=== PATIENT | female | born 1985 | race Hispanic/Latino ===

== ENCOUNTER 2019-12-19 20:02 | Emergency (ER) | payer SELFPAY ==
[2019-12-19 20:23] LABS: Bilirubin Negative (Negative); Blood, Urine Moderate (Negative); Glucose, Urine (Dipstick) Negative (Negative); Ketone, Urine Negative (Negative); Leukocyte Moderate (Negative); Nitrite Negative (Negative); Protein, Urine (Dipstick) Negative (Neg-Trace); Specific Gravity, Urine 1.025 (1.005-1.030); Urobilinogen 0.2 mg/dL (Less than 2)
[2019-12-19 20:28] LABS: Bacteria/HPF Rare-Few HPF (None Seen); Clarity Hazy (Clear); Squamous Epithelial 0-3 HPF (0-3); WBC/HPF 21-50 HPF (0-3)
[2019-12-19 20:29] LABS: Pregnancy Test - Urine (BHCG) Negative (Negative); Pregu Control Background? CLEAR/WHITE (CLR/WHITE); Pregu Control Bar Appear? YES (CONTROL BAR); Specific Gravity 1.025 (1.002-1.036)
[2019-12-19 20:29] LABS: Other Microscopic Description C&S SET UP
[2019-12-19] MEDS ORDERED: Nitrofurantoin Monohyd/M-Cryst 100 MG CAP ONE (20:42)
== END 2019-12-19 20:50 | disposition home or self-care (01) ==
LOC: BURERS 20:02
DX: N39.0 Urinary tract infection, site not specified (principal)
CPT/HCPCS: 81003; 81015; 81025; 87077; 87086; 87186; 99283